=== PATIENT | male | born 1990 | race African-American/Black ===

== ENCOUNTER 2016-09-07 10:39 | Emergency (ER) | payer OTHER ==
[~2016-09-07] VITALS: Ht 185.4 cm; Wt 78.5 kg
[2016-09-07 10:50] VITALS: Ht 185.4 cm; Wt 78.5 kg
[2016-09-07] MEDS ORDERED: NAPR-260 PO (11:52)
[2016-09-07] MEDS ORDERED: ACET500C5 PO (11:53)
--- NOTE | 2016-09-07 11:59 | ERD ---
ER Documentation Chief Complaint Date/Time DATE: 09/07/16 TIME: 11:55 Chief Complaint L wirst pain X 2 years , worst x 2 days. No injury or fall. HPI Is a 26-year-old male who presents to the emergency department today complaining of right wrist pain for the past several years and worse over the past couple of days. Patient states that his wrist was initially injured while working at [employer] and was lifting heavy walks. He states he is no longer at that job and the pain had resolved for a short period of time but now is worse over the last couple of days. 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 Denies any new trauma or falls. Denies any fevers or chills. States he does not have a primary care doctor. ROS All systems reviewed and are negative except as per history of present illness. Medications Home Meds Active Scripts Acetaminophen* (Tylophen*) 500 Mg Capsule, 1 CAP PO Q6H Y for PAIN AND OR ELEVATED TEMP, #30 CAP Prov:SANDOVAL GARCIA PA-C 09/07/16 Naproxen* (Naprosyn*) 500 Mg Tablet, 500 MG PO BID Y for PAIN AND/OR INFLAMMATION, #30 TAB Prov:SANDOVAL GARCIA PA-C 09/07/16 Physical Exam Vitals Vital Signs Date Time Temp Pulse Resp B/P Pulse Ox O2 Delivery O2 Flow Rate FiO2 09/07/16 10:50 78.5 68 18 128/67 97 Physical Exam Const: No acute distress, pleasant Head: Atraumatic Eyes: Normal Conjunctiva ENT: Normal External Ears, Nose and Mouth. Neck: Full range of motion..~ No meningismus. Resp: Clear to auscultation bilaterally Cardio: Regular rate and rhythm, no murmurs Abd: Soft, non tender, non distended. Normal bowel sounds Skin: No petechiae or rashes MSK: Right wrist with no obvious deformity, no effusion. No ecchymosis. Diffusely tender to palpation. Evidence of scar tissue over third flexor tendon on palmar aspect of hands. Pulses 2+. Distal neurovascularly intact. Positive Phalen's sign. Neur: Awake and alert Psych: Normal Mood and Affect Results 24 hrs Current Medications Medications (Trade) Dose Ordered Sig/Carmencita Route PRN Reason Start Time Stop Time Status Last Admin Dose Admin Acetaminophen/ Hydrocodone Bitart ([place] (5/325)) 1 tab ONCE ONCE PO 09/07/16 12:00 09/07/16 12:01 Procedures/MDM This is a 26-year-old male who presents to the emergency department today complaining of right wrist pain for the past several years that had initially resolved and is now worse for the past couple of days. Patient is afebrile and otherwise well-appearing. He has had no trauma. I have low suspicion for acute fracture dislocation or septic joint or gout. Do not feel that he requires imaging at this time or laboratory workup. Patient did have a positive Phalen's sign and he does have some scar tissue evidence on his flexor tendon on the palmar aspect along his third flexor tendon. I have low suspicion for flexor tenosynovitis. I did consider something similar to Dupuytren's contracture however patient is able to fully extend his fingers and wrist albeit with pain. I have explained to the patient that he would benefit from referral to a hand specialist. I have given him a list of information for client delivery specialist as well as all of you hand clinic. Patient was given [place] here in the emergency department. Given the duration of symptoms I do not feel he would benefit from narcotics at home. I did give the patient a prescription for Naprosyn and Tylenol he was instructed to wear the wrist brace that he has and may wear it while sleeping. Patient symptoms at this time is consistent with carpal tunnel syndrome and overuse likely due to his job related duties. Patient was given a work note for a couple of days. At this time the patient is stable for discharge and outpatient management. Patient should follow up with their PCP in the next 1-2 days. They may return to the emergency department sooner for any persistent or worsening of symptoms. Patient understood and agreed with the plan. Departure Diagnosis: Primary Impression: Pain in wrist Laterality: right Qualified Code: M25.531 - Right wrist pain Condition: Fair Patient Instructions: Carpal Tunnel Syndrome Prevention Tips Referrals: COMMUNITY CLINICS YOU HAVE RECEIVED A MEDICAL SCREENING EXAM AND THE RESULTS INDICATE THAT YOU DO NOT HAVE A CONDITION THAT REQUIRES URGENT TREATMENT IN THE EMERGENCY DEPARTMENT. FURTHER EVALUATION AND TREATMENT OF YOUR CONDITION CAN WAIT UNTIL YOU ARE SEEN IN YOUR DOCTORS OFFICE WITHIN THE NEXT 1-2 DAYS. IT IS YOUR RESPONSIBILITY TO MAKE AN APPOINTMENT FOR FOLOW-UP CARE. IF YOU HAVE A PRIMARY DOCTOR --you should call your primary doctor and schedule an appointment IF YOU DO NOT HAVE A PRIMARY DOCTOR YOU CAN CALL OUR PHYSICIAN REFERRAL HOTLINE AT IF YOU CAN NOT AFFORD TO SEE A PHYSICIAN YOU CAN CHOSE FROM THE FOLLOWING [facility] [address] [facility] [address] [facility] [address] [facility] [address] [facility] [address] [facility]. [address] [facility] [place] Hours: Mon-Fri 9:00 AM - 5:00 PM Additional Instructions: Call your primary care doctor TOMORROW for an appointment during the next 1-2 days.See the doctor sooner or return here if your condition worsens before your appointment time. Make an appointment with orthopaedic hand specialist Take Naprosyn or Tylenol or Motrin for pain Wear wrist splints for comfort SANDOVAL GARCIA PA-C Sep 07, 2016 11:59
[2016-09-07] MEDS ORDERED: HYDROCODONE/APAP (5/325) TAB PO ONE (12:00)
== END 2016-09-07 12:37 | disposition home or self-care (01) ==
LOC: FTE 10:39
DX: M25.531 Pain in right wrist (principal)
CPT/HCPCS: Z7502; Z7610; 99283

== ENCOUNTER 2017-07-08 08:52 | Emergency (ER) | END 2017-07-08 09:56 | disposition home or self-care (01) ==